=== PATIENT | female | born 1990 | race Hispanic/Latino ===

== ENCOUNTER 2019-03-12 09:15 | Emergency (ER) | payer BC, OTHER ==
[2019-03-12] MEDS ORDERED: MAGNESIUM HYDROXIDE 30 ML/UDCUP ONE (09:41)
[2019-03-12] MEDS ORDERED: ONDANSETRON HCL 4 MG/2 ML VIAL ONE (09:41)
[2019-03-12] MEDS ORDERED: LIDOCAINE HCL 2% VISCOUS 15 ML UDCUP ONE (09:41)
[2019-03-12] MEDS ORDERED: MORPHINE SULFATE 4 MG/1ML SYG ONE (10:01)
[2019-03-12 10:03] LABS: CREATININE 0.7 mg/dL (0.5-1.5); POTASSIUM 4.5 mmol/L (3.5-5.1)
[2019-03-12 10:08] LABS: ALBUMIN 3.3 g/dL (3.5-5.0); BILIRUBIN,TOTAL 0.4 mg/dL (0.2-1.0); TOTAL PROTEIN, SERUM 7.3 g/dL (6.0-8.3)
[2019-03-12 10:24] LABS: BASOPHILS % (AUTO) 0.5 % (0.0-5.0); HEMATOCRIT 39.7 % (36-48); LYMPHOCYTES % (AUTO) 25.6 % (21.0-51.0); MEAN CORPUSCULAR HEMOGLOBIN 29.9 pg (27.0-33.0); MEAN CORPUSCULAR HGB CONC 33.8 g/dL (32.0-36.0); MEAN CORPUSCULAR VOLUME 88.4 fL (79-99); MONOCYTES % (AUTO) 6.1 % (3.0-13.0); NEUTROPHILS % (AUTO) 66.8 % (40.0-77.0); PLATELET COUNT (AUTO) 194 K/uL (130-400); RED BLOOD CELL COUNT(AUTO) 4.49 MIL/uL (4.00-5.50); RED CELL DISTRIBUTION WIDTH 13.2 % (11.0-15.5); WHITE BLOOD COUNT (AUTO) 5.8 K/uL (4.8-10.8)
[2019-03-12 10:40] LABS: APPEARANCE,URINE Clear (CLEAR); BILIRUBIN,URINE Negative (NEGATIVE); COLOR,URINE Yellow (YELLOW); GLUCOSE, URINE (UA) Negative (NEGATIVE); KETONES,URINE Negative (NEGATIVE); LEUKOCYTE ESTERASE ,URINE Moderate (NEGATIVE); NITRATE,URINE Negative (NEGATIVE); OCCULT BLOOD,URINE Negative (NEGATIVE); PROTEIN,URINE Negative (NEGATIVE); UROBILINOGEN,URINE 0.2 mg/dL (0.2-1.0)
[2019-03-12 10:43] LABS: HCG,QUAL RESULT NEGATIVE (NEGATIVE)
[2019-03-12 10:51] LABS: BACTERIA,URINE Rare /HPF (None Seen); MUCUS,URINE Rare LPF (None Seen); RBC,URINE 0-1 /HPF (0-1); SQUAMOUS EPITHELIAL CELL,UR Rare /HPF (0-2)
[2019-03-12] MEDS ORDERED: IOHEXOL 350 MG/ML 100ML INFUS..BTL IV ONE (12:21)
[2019-03-12] MEDS ORDERED: FAMOTIDINE/PF 20 MG/2 ML VIAL IV ONE (14:10)
== END 2019-03-12 14:15 | disposition home or self-care (01) ==
LOC: EDH 09:15
DX: K29.70 Gastritis, unspecified, without bleeding (principal)
CPT/HCPCS: 36415; 74177; 76705; 80053; 81001; 81025; 83690; 85025; 93005; 96361; 96374; 96375; 99285; J2270; J2405; J3490; Q9967